=== PATIENT | female | born 1935 | race Caucasian/White ===

== ENCOUNTER → 2020-11-02 | Day surgery (SDC) | payer OTHER ==
--- OUTSIDE RECORDS SUMMARY | 2020-11-02 09:45 | XMS REPORT | Continuity of Care Document ---
:1935 Author Organization [facility] t Address [address] [place] [address] Care Team Providers Name Role Phone VIC Attending Clinician Unavailable CELINE Attending Clinician Unavailable WILLA Attending Clinician Unavailable Problems Condition Condition Condition Status Onset Resolution Last Treating Co mments Source Name Details Category Date Date Treatment Clinician Date History of History of Problem Resolve Univers depression depression d it y of [place] [facility] ans History of History of Problem Resolve [facility] difficulty difficulty d it y of sleeping sleeping [place] [facility] History of History of Problem Resolve [facility] shortness shortness d [place] breath [place] [place] History of History of Problem Resolve Univers Generalize Generalize d it y of d d [place] stiffness stiffness Phys ici ans Neck pain Neck pain Problem Active Uni vers ity of [place] [facility] ans Pain, Pain, Problem Active Univers acute acute ity of [place]oper[place]oper[place] Primary Primary Problem Active Univers osteoarthr osteoarthr it y of itis of itis of [place] right knee right knee Ph ysici ans DDD DDD Problem Active 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), disease), Phys ici cervical cervical ans Myofascial Myofascial Problem Active U nivers pain pain ity of [place] [facility] ans Screening Screening Problem Active Uni vers for viral for viral ity of disease disease [place] [facility] ans Impingemen Impingemen Problem Active U nivers t syndrome t syndrome it y of of right of right [place] shoulder shoulder Physic i ans 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 Family History Family Member Diagnosis Comments Start Date Stop Date Source Unknown Family Family history of Family History [facility] Member diabetes mellitus [place] P [facility] Unknown Family Family history of Family History [facility] of Member arthritis [place] Phys[facility] ns Unknown Family Family history of Family History [facility] Member cardiac disorder [place] [facility] Unknown Family Family history of Family History [facility] of Member hypertension [place] Physic ians Social History Smoking Status Start Date Stop Date Source [facility]ations Ordered Filled Start Stop Current Ordering Indication Dosage Frequency Signature Comments Components Source Medication Medication Date Date Medication? Clinician (SIG) Name Name Pennsaid 2 Pennsaid 2 Yes ANA 2 pumps Univers % % 5-13 VIC BID per ity of Transdermal Transdermal 00:00: M.D. affected [place] Solution Solution 00 area Physici ans Diclofenac Diclofenac Yes SHERLYN apply 1 Univers Sodium 1 % Sodium 1 % 925 BERGER M.D. grams to ity of Transdermal Transdermal 00:00: the [place] Gel Gel 00 affected Physici area 1-2 ans times a day as need for pain Monovisc 88 Monovisc 88 Yes SHERLYN Dispense Univers MG/4ML MG/4ML 9-25 BERGER M.D. one kit (1 ity of Intra-artic Intra-artic 00:00: syringe 6 [place] ular ular 00 ml) to Physici Solution Solution administer a ns Prefilled Prefilled ed by Syringe Syringe prescribin g physician methylPREDN methylPREDN Yes ANA TAKE Univers ISolone 4 ISolone 4 2-27 VIC DIRECTED ity of MG Oral MG Oral 00:00: M.D. [place] Tablet Tablet 00 Physici Therapy Therapy ans Pack Pack Omeprazole Omeprazole Yes M.A. Uni vers TBEC TBEC ity of [place] Physici ans Aspir-Low Aspir-Low Yes M.A. Unive rs TBEC TBEC ity of [place] Physici ans dilTIAZem dilTIAZem Yes M.A. Unive rs HCl TABS HCl TABS ity of [place] Physici ans metFORMIN metFORMIN Yes M.A. Unive rs HCl TABS HCl TABS ity of [place] Physici ans Vital Signs Vital Name Observation Time Observation Value Comments Source Height 2019-07-06 18:23:00 62 [in_us] [facility] [place] [facility] Weight 2019-07-06 18:23:00 152 [lb_av] [facility] Physicians Body Mass Index 2019-07-06 18:23:00 27.8 kg/m2 [facility] Calculated Physicians Height 2018-11-23 09:47:00 62 [in_us] [facility] Weight 2018-11-23 09:47:00 152 [lb_av] [facility] Physicians Body Mass Index 2018-11-23 09:47:00 27.8 kg/m2 [facility] Calculated Physicians Procedures Procedure Date / Time Performing Clinician Source Performed [UTP] Ortho - Surgery 2020-05-02 00:00:00 [facility] Scheduling Physicians [UTP] Ortho - Surgery 2020-03-14 00:00:00 [facility] Scheduling Physicians . UTP - 2020-03-14 00:00:00 [facility] COVID-19/SARS-Cov-2 Physicians [L] 20182020-02-15 00:00:00 [facility] Coronavirus (COVID-19), Physicia ns SIMEON [UTP] Ortho - Surgery 2019-07-06 00:00:00 [facility] Scheduling Physicians [UTP] Ortho - Surgery 2018-12-08 00:00:00 [facility] Scheduling Physicians MRI Spine cervical wo 2018-11-23 00:00:00 [facility] contrast [id number] Physicians Plan of Care Planned Activity Planned Date Details Comments Source Diagnostic Test 2020-05-02 [UTP] [facility] Pending 00:00:00 Surgery Scheduling Physician s [code = [UTP] Ortho - Surgery Scheduling] Diagnostic Test 2020-03-14 [UTP] [facility] Pending 00:00:00 Surgery Scheduling Physician s [code = [UTP] Ortho - Surgery Scheduling] Diagnostic Test 2019-07-06 [UTP] [facility] Pending 00:00:00 Surgery Scheduling Physician s [code = [UTP] Ortho - Surgery Scheduling] Diagnostic Test 2018-12-08 [UTP] [facility] Pending 00:00:00 Surgery Scheduling Physician s [code = [UTP] Ortho - Surgery Scheduling] Diagnostic Test 2018-12-08 [UTP] [facility] Pending 00:00:00 Surgery Scheduling Physician s [code = [UTP] Ortho - Surgery Scheduling] Encounters Start End Encounter Admission Attending Care Care Encounter Source Date/Time Date/Time Type Type Clinicians Facility Department ID 2020-05-24 2020-05-24 Tony HO [facility] [id number] Univers 13:30:00 13:30:00 t; antonia PEREZ M.D. [place] Russel PEREZ M.D. ans 2020-05-02 2020-05-02 [facility] 6 [id number] Univers 14:15:00 14:15:00 t; Hazel PEREZ M.D. [place] Russel PEREZ M.D. ans 2020-04-03 2020-04-03 Tony HO [facility] [id number] Univers 13:45:00 13:45:00 t; antonia PEREZ M.D. [place] Russel PEREZ M.D. ans 2020-03-14 2020-03-14 [facility] 6 [id number] Univers 13:30:00 13:30:00 t; Hazel PEREZ M.D. [place] Russel PEREZ M.D. ans 2020-02-22 2020-02-22 Tony HO [facility] Orthopedics 6 [id number] Univers 14:15:00 14:15:00 t; Hazel PEREZ M.D. [place] Russel PEREZ M.D. ans 2019-08-03 2019-08-03 Tony HO [facility] Orthopedics 5 [id number] Univers 14:15:00 14:15:00 t; Hazel PEREZ M.D. [place] Russel PEREZ M.D. ans 2019-08-03 2019-08-03 Tony BERGER [facility] Orthopedics [id number] Univers 13:00:00 13:00:00 t; SHERLYN BERGER - Sugar ity o f VISHAL, M.D. [place] Sandip Goode ans 2019-07-19 2019-07-19 Tony HO [facility] [id number] Univers 14:45:00 14:45:00 t; antonia PEREZ M.D. [place] Russel PEREZ M.D. ans 2019-07-06 2019-07-06 [facility] 5 [id number] Univers 13:00:00 13:00:00 t; Hazel PEREZ M.D. [place] Russel PEREZ M.D. ans 2019-07-06 2019-07-06 [facility] Castillo [facility] [id number] Univers 10:45:00 10:45:00 t; SHERLYN BERGER - Sugar ity o f VISHAL, M.D. [place] Richard Physici ans 2019-01-04 2019-01-04 [facility] 5 [id number] Univers 08:30:00 08:30:00 t; antonia PEREZ M.D. [place] Russel PEREZ M.D. ans 2018-12-23 2018-12-23 Tony HO [facility] [id number] Univers 12:15:00 12:15:00 t; antonia PEREZ M.D. [place] Russel PEREZ M.D. ans 2018-12-08 2018-12-08 [facility] 5 [id number] Univers 10:15:00 10:15:00 t; antonia PEREZ M.D. [place] Russel PEREZ M.D. ans 2018-11-23 2018-11-23 MIRACLE Taylor ACTAT [id number] Univers 09:15:00 09:15:00 t; ANA, Surgery at [facility] jigar HO M.D. [facility] as Russel PEREZ M.D. ans 2018-08-11 2018-08-11 Tony BERGER [facility] [id number] Univers 14:30:00 14:30:00 t; SHERLYN BERGER ity o f VISHAL, M.D. [place] M.D. Physici ans 2017-09-24 2017-09-24 MIRACLE Clancy [facility] [id number] Univers 10:00:00 10:00:00 t; LISA CROUCH ity of MATTHEW, M.D. [place] M.D. Physici ans 2017-09-18 2017-09-18 Appoint[facility]LE Dean UTP [id number] Univers 13:45:00 13:45:00 t; SHERLYN BERGER ity o f VISHAL, M.D. [place] M.D. Physici ans 2016-12-19 2016-12-19 AppointMIRACLE Dean UTP [id number] Univers 13:30:00 13:30:00 t; SHERLYN BERGER ity o f VISHAL, M.D. [place] M.D. Physic ans Results Test Description Test Time Test Comments Results Result Comments Source Tobacco Use Screening 2018-11-23 09:15:00 Test Item Value Reference Range Interpretation Comme nts Completed (test code = Completed) DONE [facility] [place] [facility]
--- NOTE | 2020-11-02 11:17 | RAD REPORT ---
EXAM DESCRIPTION: US - BREAST/AXILLA, LIMITED - 11/02/2020 10:33 am CLINICAL HISTORY: R92.8 COMPARISON: No comparisons FINDINGS: Pre-procedure planning ultrasound of the right breast was performed. Examination was perfo rmed to attempt to visualize small mass detected on the 10/30/2020 breast MRI for ultrasound-guided b iopsy. Despite prolonged sonographic evaluation by radiologist, the mass of interest on MRI could not be def initively visualized by ultrasound to enable ultrasound-guided core biopsy with confidence. It is rec ommended the patient undergo MRI guided biopsy of the right breast lesion. IMPRESSION: The small enhancing suspicious mass seen in the right breast anteriorly on 10/30/2020 MR I breast could not confidently be identified on pre-procedure right breast ultrasound for biopsy. For this reason, MRI guided biopsy of the lesion is recommended. This was discussed in detail with the p atient who understood the recommendation and our department will assist in scheduling of the biopsy p rocedure at an outside institution. BI-RAD: 4, suspicious ResultCode: S
== END ==
LOC: DS 10-02 09:11
PROVIDERS: ATTEND Internal Medicine Gastroenterology
DX: R92.8 Other abnormal and inconclusive findings on diagnostic imaging of breast (principal); Z53.9 Procedure and treatment not carried out, unspecified reason
CPT/HCPCS: 76642